=== PATIENT | male | born 1970 | race Caucasian/White ===

== ENCOUNTER → 2017-06-17 | Outpatient (CLI) | payer OTHER ==
[~2017-06-17] MED LIST: ALEVE220 M2 PO; CATAPRES0.1 MG PO; CLINDAMYCIN HC300 MG PO; HYDROCHLOROTH12.5 M3 PO; ZESTRIL2.5 MG PO
== END | disposition home or self-care (01) ==
LOC: CDC 10:19
DX: I45.10 Unspecified right bundle-branch block (principal); G56.02 Carpal tunnel syndrome, left upper limb; M25.532 Pain in left wrist; M25.531 Pain in right wrist
CPT/HCPCS: 93000

== ENCOUNTER 2017-07-15 10:07 | Day surgery (SDC) | payer OTHER ==
[~2017-07-15] VITALS: Ht 175.3 cm; Wt 126.1 kg
[~2017-07-15 10:07] MED LIST changes: +CO Q-10100 MG PO; +GLUCOTROL5 MG PO; +LIPITOR20 MG PO; +LISINOPRIL-HCT1 EAC3 PO; +METFORMIN HCL1000 MG PO; +METHOCARBAMOL750 MG PO; +PEPCID40 MG PO; +TOPROL XL50 MG PO; +TRAMADOL HCL50 MG PO; +VITAMIN D31000 UNIT PO
[2017-07-15 10:39] VITALS: BP 178/90
[2017-07-15 11:03] LABS: POINT-OF-CARE METER ID UU14174212
[2017-07-15 11:55] LABS: METH RESISTANT S AUREUS PCR NEGATIVE (NEGATIVE)
[2017-07-15 11:56] LABS: PROBE CHECK PASS; SPECIMEN PROCESSING CONTROL PASS
[2017-07-15 13:59] LABS: POINT-OF-CARE METER ID UU13113675
[2017-07-15 14:55] VITALS: BP 138/89
[2017-07-15 15:40] VITALS: BP 139/82
== END 2017-07-15 15:40 | disposition home or self-care (01) ==
LOC: SDC
PROVIDERS: Orthopaedic Surgery Sports Medicine
PROC: 01N50ZZ Release Median Nerve, Open Approach (ICD-10-PCS; principal; 2017-07-15)
DX: G56.03 Carpal tunnel syndrome, bilateral upper limbs (principal); G56.20 Lesion of ulnar nerve, unspecified upper limb; E11.9 Type 2 diabetes mellitus without complications; I10 Essential (primary) hypertension; Z79.84 Long term (current) use of oral hypoglycemic drugs; F17.210 Nicotine dependence, cigarettes, uncomplicated; E66.9 Obesity, unspecified; Z68.41 Body mass index [BMI] 40.0-44.9, adult
CPT/HCPCS: 82948; 87641; J1170; J1885; J2250; J2405; S0020

== ENCOUNTER 2017-08-05 10:58 | Day surgery (SDC) | payer OTHER ==
[~2017-08-05] VITALS: Ht 175.3 cm; Wt 123.0 kg
[2017-08-05 11:38] VITALS: BP 142/94
[2017-08-05 12:01] LABS: POINT-OF-CARE METER ID UU14174212
[2017-08-05 12:51] LABS: METH RESISTANT S AUREUS PCR NEGATIVE (NEGATIVE); PROBE CHECK PASS; SPECIMEN PROCESSING CONTROL PASS
[2017-08-05 14:01] LABS: POINT-OF-CARE METER ID UU13113675; POINT-OF-CARE USER ID 515036437
[2017-08-05 14:35] VITALS: BP 136/80
[2017-08-05 15:09] VITALS: BP 147/60
== END 2017-08-05 15:12 | disposition home or self-care (01) ==
LOC: SDC 10:58
PROVIDERS: Orthopaedic Surgery Sports Medicine
PROC: 01N50ZZ Release Median Nerve, Open Approach (ICD-10-PCS; principal; 2017-08-05)
DX: G56.02 Carpal tunnel syndrome, left upper limb (principal); E11.9 Type 2 diabetes mellitus without complications; K21.9 Gastro-esophageal reflux disease without esophagitis; F17.200 Nicotine dependence, unspecified, uncomplicated; Z79.84 Long term (current) use of oral hypoglycemic drugs; Z79.891 Long term (current) use of opiate analgesic
CPT/HCPCS: 82948; 87641; J1885; J2250; S0020